=== PATIENT | female | born 1955 | race Caucasian/White ===

== ENCOUNTER → 2017-11-29 | Outpatient (CLI) | payer OTHER ==
[~2017-11-29] MED LIST: CITRTAB13; DOCU8.6T PO; FISH1200; MAGN100T2 PO; MEDI220T PO; MELA1TAB18 PO; TUMS500C CHEW; VITA2000 PO
[2017-11-29 07:38] LABS: HEMATOCRIT 38.5 % (35.0-46.0); HEMOGLOBIN 13.5 GM/DL (11.6-15.3); MEAN CELL VOLUME 92.9 FL (80.0-100.0); MEAN CORPUSCULAR HEMOGLOBIN 32.4 PG (27.0-34.0); MEAN CORPUSCULAR HGB CONC 34.9 % (32.0-36.0); MEAN PLATELET VOLUME 8.7 FL (7.0-11.0); PLATELET COUNT 192 TH/MM3 (150-450); RED BLOOD COUNT 4.15 MIL/MM3 (4.00-5.30); RED CELL DISTRIBUTION WIDTH 12.4 % (11.6-17.2); WHITE BLOOD COUNT 3.9 TH/MM3 (4.0-11.0)
[2017-11-29 07:47] LABS: ALT (GPT) 21 U/L (10-53); AST (GOT) 17 U/L (15-37); BICARBONATE 26.6 MEQ/L (21.0-32.0); BLOOD UREA NITROGEN 24 MG/DL (7-18); CALCIUM 8.6 MG/DL (8.5-10.1); CHLORIDE 108 MEQ/L (98-107); GLOMERULAR FILTRATION RATE 85 ML/MIN (>89); GLUCOSE,FASTING 101 MG/DL (74-99); SODIUM (NA) 141 MEQ/L (136-145)
[2017-11-29 07:57] LABS: ALKALINE PHOSPHATASE 69 U/L (45-117); TOTAL BILIRUBIN ADULT 0.7 MG/DL (0.2-1.0); TOTAL PROTEIN 7.4 GM/DL (6.4-8.2)
[2017-11-30 15:56] LABS: TRANSGLUTAMINASE IGA AB <1.2 U/mL; TRANSGLUTAMINASE IGG AB <1.2 U/mL
== END ==
LOC: CLAB 06:57
PROVIDERS: ATTEND Family Medicine
DX: M81.0 Age-related osteoporosis without current pathological fracture (principal); K59.04 Chronic idiopathic constipation; R10.30 Lower abdominal pain, unspecified
CPT/HCPCS: 36415; 80053; 82306; 83516; 84443; 85027

== ENCOUNTER → 2018-03-14 | Outpatient (CLI) | payer OTHER ==
--- NOTE | 2018-03-15 19:58 | HM ---
Date Performed: 03/14/2018 Time Performed: 09:34:00 HOOKUP DATE: 03/14/18 09:34:00 AM Mon ANALYSIS START TIME: 03/14/2018 9:39:00 AM ANALYSIS END TIME: 03/15/2018 7:19:01 AM PATIENT AGE: 62 PATIENT HEIGHT PATIENT WEIGHT DRUG LIST PATIENT DIAGNOSIS: palpitations TEST NARRATIVE: The patient's average heart rate was 72 BPM. Heart rates greater than 120 B PM were noted 4% of the time. Heart rates less than 50 BPM were noted 1% of the time. No pauses exceeding 2.0 seconds were noted. No ventricular ectopics were noted. 1 supraventricular ecto pics, which represented < 1% of the total beat count, were noted. The highest supraventricular ectop ic frequency occurred from 01:00 PM to 02:00 PM Mon. During this time 1 SVE(s) occurred. Multipl e episodes of ST depression (defined as -1.0 mm or more) were noted in channel 1. The maximum depre ssion of -4.0 mm occurred at 06:10:00 AM Tue. Multiple episodes of ST depression (defined as -1.0 mm or more) were noted in channel 2. The maximum depression of -3.0 mm occurred at 06:04:07 AM Tue. Multiple episodes of ST depression (defined as -1.0 mm or more) were noted in channel 3. The maximu m depression of -2.8 mm occurred at 07:08:14 AM Tue. TEST INTERPRETATION: Patient was in sinus rythm predominantly. Patient has very rare PAC's and n o PVC's recorded. No ventricular runs, pauses and no cardiac complaints in diary recorded. Normal Hol ter monitor. Signed by : Alessia Wells
== END ==
LOC: HCAV 08:44
PROVIDERS: ATTEND Internal Medicine Cardiovascular Disease
DX: R00.2 Palpitations (principal)
CPT/HCPCS: 93225; 93226